=== PATIENT | female | born 1960 | race Caucasian/White ===

== ENCOUNTER 2019-07-17 21:40 | Emergency (ER) | payer BC ==
[~2019-07-17] VITALS: Ht 165.1 cm; Wt 74.8 kg
[2019-07-17] MEDS ORDERED: SYNTHROID50 MCG PO (22:11)
== END 2019-07-17 22:55 | disposition home or self-care (01) ==
LOC: ER 21:40
DX: S01.02XA Laceration with foreign body of scalp, initial encounter (principal); W45.8XXA Other foreign body or object entering through skin, initial encounter; Y93.89 Activity, other specified; Y92.89 Other specified places as the place of occurrence of the external cause; Y99.8 Other external cause status